=== PATIENT | female | born 1980 | race Caucasian/White ===

== ENCOUNTER 2017-06-16 12:04 | Emergency (ER) | payer BC ==
[2017-06-16] MEDS: KETOROLAC 30 MG INJ IV (13:24)
[2017-06-16] MEDS: SOD CHLORIDE 0.9% 1,000 ML IV (13:25)
[2017-06-16] MEDS: HYDROCODONE/APAP (5/325) TAB PO (14:21)
== END 2017-06-16 14:29 | disposition home or self-care (01) ==
LOC: FTE 12:04
DX: H70.11 Chronic mastoiditis, right ear (principal)
CPT/HCPCS: 36415; 70450; 81025; 96374; 99285-25

== ENCOUNTER 2017-07-10 22:42 | Emergency (ER) | payer BC ==
[2017-07-11] MEDS: DIAZEPAM 5 MG TAB PO (03:49)
[2017-07-11] MEDS: OXYCODONE/ACETAMINOPHEN (10/325) TAB PO (03:49)
[2017-07-11] MEDS: KETOROLAC 60 MG INJ IM (04:01)
== END 2017-07-11 04:15 | disposition home or self-care (01) ==
LOC: FTE 22:42
DX: M79.661 Pain in right lower leg (principal)
CPT/HCPCS: 81025; 96372; 99284-25

== ENCOUNTER 2017-12-28 04:51 | Emergency (ER) | payer BC ==
[2017-12-28 05:49] LABS: URINE PH (Dip) POC 8.5 (5.0-8.5)
[2017-12-28 05:49] LABS: URINE BLOOD (Dip) POC Negative (NEGATIVE); URINE GLUCOSE (Dip) POC Negative (NEGATIVE); URINE KETONES (Dip) POC Negative (NEGATIVE); URINE LEUKOCYTE EST (Dip) POC Trace (NEGATIVE); URINE NITRITE (Dip) POC Negative (NEGATIVE); URINE TOTAL PROTEIN POC Negative (NEGATIVE)
[2017-12-28 06:57] LABS: ADD MAN DIFF? NO
[2017-12-28 07:09] LABS: BASOPHILS % 0.2 % (0.0-2.0); EOSINOPHILS # 0.1 10^3/ul (0.0-0.5); HEMATOCRIT 44.1 % (37.0-47.0); HEMOGLOBIN 14.6 g/dl (12.0-16.0); LYMPHOCYTES # 2.2 10^3/ul (0.8-2.9); LYMPHOCYTES % 27.1 % (15.0-51.0); MEAN CORPUSCULAR HEMOGLOBIN 29.5 pg (29.0-33.0); MEAN CORPUSCULAR HGB CONC 33.1 g/dl (32.0-37.0); MEAN CORPUSCULAR VOLUME 89.1 fl (82.0-101.0); MEAN PLATELET VOLUME 11.9 fl (7.4-10.4); MONOCYTE # 0.4 10^3/ul (0.3-0.9); MONOCYTES % 5.2 % (0.0-11.0); NEUTROPHIL # 5.3 10^3/ul (1.6-7.5); NEUTROPHILS % 66.3 % (39.0-77.0); PLATELET COUNT 153 10^3/UL (140-415); RED BLOOD COUNT 4.95 10^6/ul (4.20-5.40); RED CELL DISTRIBUTION WIDTH 13.2 % (11.5-14.5)
[2017-12-28 07:10] LABS: ADD UMIC YES; UR AMORPHOUS CRYSTAL FEW /HPF (NONE SEEN); UR ASCORBIC ACID NEGATIVE (NEGATIVE); UR BACTERIA FEW /HPF (NONE SEEN); UR BILIRUBIN (Dip) NEGATIVE (NEGATIVE); UR BLOOD (Dip) NEGATIVE (NEGATIVE); UR CLARITY CLOUDY (CLEAR); UR COLOR YELLOW (YELLOW); UR GLUCOSE (Dip) NEGATIVE (NEGATIVE); UR KETONES (Dip) TRACE mg/dL (NEGATIVE); UR LEUKOCYTE ESTERASE (Dip) TRACE Leu/ul (NEGATIVE); UR NITRITE (Dip) NEGATIVE (NEGATIVE); UR RBC 1 /HPF (0-5); UR TOTAL PROTEIN (Dip) NEGATIVE (NEGATIVE); UR UROBILINOGEN (Dip) NEGATIVE (NEGATIVE); UR WBC 7 /HPF (0-5)
[2017-12-28 07:27] LABS: ALANINE AMINOTRANSFERASE 20 IU/L (13-69); ALBUMIN 4.6 g/dl (3.3-4.9); ALBUMIN/GLOBULIN RATIO 1.48; ALKALINE PHOSPHATASE 66 IU/L (42-121); ANION GAP 11 (8-16); ASPARTATE AMINO TRANSFERASE 20 IU/L (15-46); BILIRUBIN,INDIRECT 1.9 mg/dl (0-1.1); BILIRUBIN,TOTAL 1.9 mg/dl (0.2-1.3); BLOOD UREA NITROGEN 10 mg/dl (7-20); CALCIUM 9.5 mg/dl (8.4-10.2); CARBON DIOXIDE 28 mmol/L (21-31); CHLORIDE 106 mmol/L (97-110); CREATININE 0.45 mg/dl (0.44-1.00); GLUCOSE 94 mg/dl (70-220); SODIUM 141 mmol/L (135-144); TOTAL PROTEIN 7.7 g/dl (6.1-8.1)
[2017-12-28] MEDS: predniSONE 20 MG TAB PO (08:14)
[2017-12-28] MEDS: ONDANSETRON (ODT) 4 MG TAB ODT (08:14)
[2017-12-28] MEDS: HYDROCODONE/APAP (5/325) TAB PO (08:14)
== END 2017-12-28 08:24 | disposition home or self-care (01) ==
LOC: FTE 04:51
DX: R51 Headache (principal)
CPT/HCPCS: 70480; 80053; 81001; 81003; 81025; 85025; 99284-25